=== PATIENT | female | born 2005 | race Caucasian/White ===

== ENCOUNTER 2024-05-18 13:28 | Outpatient (CLI) | payer BC, SELFPAY | END 2024-05-18 13:29 | disposition home or self-care (01) | LOC: NFLDREF 05-22 14:44 | PROVIDERS: Visit Provider Nurse Practitioner Family | DX: N39.0 Urinary tract infection, site not specified (principal); B96.1 Klebsiella pneumoniae [K. pneumoniae] as the cause of diseases classified elsewhere | CPT/HCPCS: 87086; 87186 ==